=== PATIENT | female | born 1980 | race Caucasian/White ===

== ENCOUNTER 2018-02-16 08:49 | Day surgery (SDC) | payer MEDICAID ==
[2018-02-16] MEDS ORDERED: Lactated Ringer's 500 ML IV ONE (09:19)
[2018-02-16] MEDS ORDERED: Propofol 10 mg/ml Inj (20 ML) ONE (10:34)
[2018-02-16 10:53] VITALS: TEMP 97.3
[2018-02-16 11:13] VITALS: BP 108/40; PULSE 88; RESP 16; O2SAT 98
== END 2018-02-16 11:39 | disposition home or self-care (01) ==
LOC: H.ENDO 08:49
PROVIDERS: ATTEND Internal Medicine Gastroenterology
DX: K25.9 Gastric ulcer, unspecified as acute or chronic, without hemorrhage or perforation (principal); K21.9 Gastro-esophageal reflux disease without esophagitis; K29.50 Unspecified chronic gastritis without bleeding; B96.81 Helicobacter pylori [H. pylori] as the cause of diseases classified elsewhere; K44.9 Diaphragmatic hernia without obstruction or gangrene; F41.9 Anxiety disorder, unspecified; Z82.49 Family history of ischemic heart disease and other diseases of the circulatory system; R12 Heartburn
CPT/HCPCS: 43239; 88305; J2001; J2704; J7120